=== PATIENT | male | born 1950 | race African-American/Black ===

== ENCOUNTER 2017-04-01 12:51 | Day surgery (SDC) | payer MEDICARE, OTHER ==
[~2017-04-01 12:51] MED LIST: CLON.2 PO; HYDR50TA5 PO; LISI40TA PO; METF-324 PO; NOVO7030P2 SQ; NOVONP2 SQ; PANCRELIPASE; [UNRECOGNIZED DRUG - OTHER]
[2017-04-01 13:09] VITALS: BP 144/75; PULSE 101; RESP 20; TEMP 98.3; O2SAT 94
[2017-04-01] MEDS ORDERED: LANTUS2P SQ (13:09)
[2017-04-01] MEDS ORDERED: ERTAPENEM 1,000 MG/NS 100 ML IV SCH ×2 (14:00)
[2017-04-01] MEDS ORDERED: ERTAPENEM 1,000 MG/NS 100 ML IV ONE ×2 (14:04)
[2017-04-01 14:10] VITALS: BP 159/74; PULSE 72; RESP 20; TEMP 98.2; O2SAT 92
[2017-04-01 15:25] VITALS: BP 148/80; PULSE 87; RESP 20; O2SAT 94
--- NOTE | 2017-04-01 15:32 | RADRPT ---
EXAM DATE/TIME: 04/01/2017 13:59 [facility] COMPARISON: No previous studies available for comparison. INDICATIONS : Patient with toe infection on left foot in need of PICC line placement. MEDICAL HISTORY : HIV, HTN, Diabetes, CKD, Anemia, Bilateral tinnitus SURGICAL HISTORY : Right leg fx repair ENCOUNTER: Initial ACUITY: 2 months PAIN SCORE: 0/10 FLUORO TIME: 1.1 minutes IMAGE SERIES: 1 ACCESS: Right basilic vein DEVICE(S): 1.) 4 [place] single lumen 38 cm Xcela Power PICC PROCEDURE : 1. Ultrasound guidance for venous catheterization. 2. Fluoroscopic guidance. 3. Ultrasound & fluoroscopic guided central venous Power PICC line placement. The risks, benefits and alternatives to the procedure were explained and verbal and written consent w as obtained. The site was prepped in sterile fashion. Full sterile technique was used, including ca p, mask, sterile gloves and gown and a large sterile sheet. Hand hygiene and 2% chlorhexidine prep w as utilized per protocol for cutaneous antisepsis with appropriate dry time for site. The skin and s ubcutaneous tissues were infiltrated with local anesthetic solution. Under direct ultrasound guidance, a suitable vein was accessed and a measuring guidewire was introduc ed and positioned in the central venous system. The ultrasound images depicting access guidance were saved and stored to PACS for permanent record. A Power Injectable PICC line was cut to prescribed length and introduced, positioned with tip at the cavoatrial junction level. The line was flushed and secured per protocol. CONCLUSION: 1. Uncomplicated central venous Power PICC line placement. 2. The PICC line can be used immediately. Freddy Carlin MD on April 01, 2017 at 15:30 Board Certified Radiologist. This report was verified electronically.
--- NOTE | 2017-04-01 15:33 | PD.RAD ---
Radiology Post PICC Prog Note Pre Procedure Diagnosis: (1) Toe infection Post Procedure Diagnosis: (1) Toe infection Procedure: Right PICC line placement Procedure Date: Apr 01, 2017 Supervising Radiologist Freddy Carlin Proceduralist/Assist: Clary Thompson, RT(R), Elizabeth Mir RT(R)() Device Side: Right [place]: 4 single lumen cm: 38 Catheter: Power PICC Plan of Activity Patient to Unit: ROPU Patient Condition: Good PICC line can be used immediately Freddy Carlin MD Apr 01, 2017 15:33
[2017-04-01] MEDS ORDERED: SODIUM CHLORIDE 0.9% FLUSH 10 ML FLUSH IVF PRN ×2 (15:45)
[2017-04-02] MEDS ORDERED: SODIUM CHLORIDE 0.9% FLUSH 10 ML FLUSH IVF SCH (09:00)
== END 2017-04-01 15:30 | disposition home or self-care (01) ==
LOC: HROP 12:51 → HRIP 12:55 → HROP 15:30
PROVIDERS: ATTEND Specialist
DX: L08.9 Local infection of the skin and subcutaneous tissue, unspecified (principal); E11.22 Type 2 diabetes mellitus with diabetic chronic kidney disease; I12.9 Hypertensive chronic kidney disease with stage 1 through stage 4 chronic kidney disease, or unspecified chronic kidney disease; N18.9 Chronic kidney disease, unspecified; D64.9 Anemia, unspecified
CPT/HCPCS: 36569; 76937; 77001; 96365; C1751; J1335; J1642

== ENCOUNTER 2017-08-05 17:44 | Inpatient (IN) | payer MEDICARE, OTHER ==
[~2017-08-05] VITALS: Ht 177.8 cm; Wt 90.4 kg
[~2017-08-05 17:44] MED LIST changes: +LANTUS2P SQ; -NOVONP2 SQ
[2017-08-05 17:46] VITALS: BP 145/70; PULSE 71; RESP 15; TEMP 98.6; O2SAT 96
--- NOTE | 2017-08-05 18:39 | PD ---
HPI Chief Complaint: Medical Clearance Time Seen by Provider: 18:28 Travel History International Travel<30 days: No Contact w/Intl Traveler<30days: No Traveled to known affect area: No History of Present Illness HPI 66-year-old male with history of HIV, diabetes, hypertension, presents with left second toe pain. He has had pain and issues with his left second toe for the past year. He reports that he has been on antibiotics intermittently for treatment of his left second toe infection. Reports that he was recently diagnosed with osteomyelitis of the toe. He reports that today he called his flue dust laborer office, Dr. Last, in regards to pain in his toe and he was referred here. He denies fevers, chills. His primary care physician is Dr. Carson. [facility] Past Medical History Cancer: Yes Diabetes: Yes Patient Takes Glucophage: Yes (METFORMIN) Diminished Hearing: No Hypertension: Yes Medical other: Yes (ANTI VIRAL MEDS) Past Surgical History Pacemaker: No Social History Alcohol Use: No Tobacco Use: No Substance Use: No Allergies-Medications (Allergen,Severity, Reaction): Coded Allergies: No Known Allergies (Verified , 08/05/17) Reported Meds & Prescriptions Reported Meds & Active Scripts Active Reported Hydrochlorothiazide 12.5 Mg Tab 12.5 Mg PO BID Clonidine (Clonidine HCl) 0.2 Mg Tab 0.2 Mg PO BID Lisinopril 40 Mg Tab 40 Mg PO BID Lamivudine 300 Mg Tab 300 Mg PO DAILY Edurant (Rilpivirine) 25 Mg Tab 25 Mg PO DAILY Tivicay (Dolutegravir Sodium) 50 Mg Tab 50 Mg PO DAILY Metformin (Metformin HCl) 1,000 Mg Tab 1,000 Mg PO BIDPC Thera M Plus (Multivitamins/Minerals Therapeutic) 1 Tab 1 Tab PO DAILY Clopidogrel (Clopidogrel Bisulfate) 75 Mg Tab 75 Mg PO DAILY Valacyclovir (Valacyclovir HCl) 1,000 Mg Tab 1,000 Mg PO DAILY Valacyclovir (Valacyclovir HCl) 1,000 Mg Tab 1,000 Mg PO BID Ferocon (Ferrous Fumarate W/ B12-Vit C-) 110 Mg Iron-75 Mg-15 Mcg-0.5 Mg Cap PO BID Calcium + D3 (Calcium Carbonate-Cholecalciferol) 600-200 Mg-Unit Tab 1 Tab PO BID Lantus Inj (Insulin Glargine) 1,000 Unit/10 Ml Vial 15 Units SQ HS Review of Systems Except as stated in HPI: all other systems reviewed are Neg Physical Exam Narrative GENERAL: Well-nourished male in no acute distress SKIN: Warm and dry. 1 cm circular dry ulceration of the dorsal aspect of the left second toe. There is some chronic-appearing darkened skin surrounding the wound which is not acutely necrotic-appearing or cellulitic appearing. Generalized tenderness to palpation of this toe. HEAD: Atraumatic. Normocephalic. EYES: Pupils equal and round. No scleral icterus. No injection or drainage. ENT: No nasal bleeding or discharge. Mucous membranes pink and moist. NECK: Trachea midline. No JVD. CARDIOVASCULAR: Regular rate and rhythm. No murmur appreciated. RESPIRATORY: No accessory muscle use. Clear to auscultation. Breath sounds equal bilaterally. GASTROINTESTINAL: Abdomen soft, non-tender, nondistended. Hepatic and splenic margins not palpable. MUSCULOSKELETAL: Skin as noted above. 2+ dorsalis pedis pulse bilaterally. NEUROLOGICAL: Awake and alert. No obvious cranial nerve deficits. Motor grossly within normal limits. Normal speech. PSYCHIATRIC: Appropriate mood and affect; insight and judgment normal. Data Data Last Documented VS Vital Signs Date Time Temp Pulse Resp B/P (MAP) Pulse Ox O2 Delivery O2 Flow Rate FiO2 08/05/17 17:46 98.6 71 15 145/70 (95) 96 Orders Orders Complete Blood Count With Diff (08/05/17 18:36) Comprehensive Metabolic Panel (08/05/17 18:36) Prothrombin Time / Inr (Pt) (08/05/17 18:36) Act Partial Throm Time (Ptt) (08/05/17 18:36) Lactic Acid Sepsis Protocol (08/05/17 18:36) Blood Culture (08/05/17 18:36) Iv Access Insert/Monitor (08/05/17 18:36) Foot, Complete ([id number]) (08/05/17 ) Vancomycin Inj (Vancomycin Inj) (08/05/17 19:45) Piperacil-Tazo 3.375 Gm Premix (Zosyn 3. (08/05/17 19:45) Admit Order (Ed Use Only) (08/05/17 19:43) Consult Podiatry (08/05/17 ) Labs Laboratory Tests Test 08/05/17 18:30 White Blood Count 7.0 TH/MM3 Red Blood Count 3.25 MIL/MM3 Hemoglobin 12.1 GM/DL Hematocrit 35.8 % Mean Corpuscular Volume 110.1 FL Mean Corpuscular Hemoglobin 37.1 PG Mean Corpuscular Hemoglobin Concent 33.7 % Red Cell Distribution Width 14.9 % Platelet Count 267 TH/MM3 Mean Platelet Volume 8.8 FL Neutrophils (%) (Auto) 43.9 % Lymphocytes (%) (Auto) 44.5 % Monocytes (%) (Auto) 9.4 % Eosinophils (%) (Auto) 1.6 % Basophils (%) (Auto) 0.6 % Neutrophils # (Auto) 3.1 TH/MM3 Lymphocytes # (Auto) 3.1 TH/MM3 Monocytes # (Auto) 0.7 TH/MM3 Eosinophils # (Auto) 0.1 TH/MM3 Basophils # (Auto) 0.0 TH/MM3 CBC Comment DIFF FINAL Differential Comment Prothrombin Time 10.6 SEC Prothromb Time International Ratio 1.0 RATIO Activated Partial Thromboplast Time 24.9 SEC Blood Urea Nitrogen 14 MG/DL Creatinine 1.77 MG/DL Random Glucose 71 MG/DL Total Protein 7.1 GM/DL Albumin 3.6 GM/DL Calcium Level 9.0 MG/DL Alkaline Phosphatase 78 U/L Aspartate Amino Transf (AST/SGOT) 19 U/L Alanine Aminotransferase (ALT/SGPT) 41 U/L Total Bilirubin 0.5 MG/DL Sodium Level 138 MEQ/L Potassium Level 3.9 MEQ/L Chloride Level 105 MEQ/L Carbon Dioxide Level 25.0 MEQ/L Anion Gap 8 MEQ/L Estimat Glomerular Filtration Rate 47 ML/MIN Lactic Acid Level 2.4 mmol/L [facility] Medical Decision Making Medical Screen Exam Complete: Yes Emergency Medical Condition: Yes Medical Record Reviewed: Yes Differential Diagnosis Acute osteomyelitis, chronic osteomyelitis, peripheral vascular disease, diabetic foot ulcer, cellulitis Narrative Course I discussed the case with on-call flue dust laborer Dr. Dooley who is partners with Dr. Last. She reports that if the patient is admitted she could likely amputate the toe in 2 days. The other option for this patient is that he can follow-up with primary care physician and attempt to expedite toe amputation as an outpatient however the patient is very much against this option and would like to be admitted. This seems reasonable given his outpatient diagnosed osteomyelitis. Discussed with Dr. Carson who is agreeable with admission. Diagnosis Primary Impression: Osteomyelitis of toe of left foot Admitting Information Admitting Physician Requests: Admit Tapan Mark Aug 05, 2017 18:39
[2017-08-05] MEDS ORDERED: METF1000 PO (19:20)
[2017-08-05] MEDS ORDERED: CLOP75TA PO (19:20)
[2017-08-05] MEDS ORDERED: RILP25 PO (19:20)
[2017-08-05] MEDS ORDERED: DOLU1TAB PO (19:20)
[2017-08-05] MEDS ORDERED: LAMI1TAB8 PO (19:20)
[2017-08-05] MEDS ORDERED: [UNRECOGNIZED DRUG - CODE] PO (19:20)
[2017-08-05] MEDS ORDERED: VALA1TAB PO ×2 (19:20)
[2017-08-05] MEDS ORDERED: THERM PO (19:20)
[2017-08-05] MEDS ORDERED: LISI40TA PO (19:20)
[2017-08-05] MEDS ORDERED: LANTUS2P SQ (19:20)
[2017-08-05] MEDS ORDERED: HYDR12.56 PO (19:20)
[2017-08-05] MEDS ORDERED: CLON0.2T PO (19:20)
[2017-08-05] MEDS ORDERED: CALC600T10 PO (19:20)
[2017-08-05 19:22] LABS: AUTOMATED NEUTROPHIL # 3.1 TH/MM3 (1.8-7.7); BASOPHIL % 0.6 % (0.0-2.0); EOSINOPHIL # 0.1 TH/MM3 (0-0.4); EOSINOPHIL % 1.6 % (0.0-4.0); HEMATOCRIT 35.8 % (39.0-51.0); HEMO FLAGS DIFF FINAL; LYMPH % 44.5 % (9.0-44.0); LYMPHOCYTE # 3.1 TH/MM3 (1.0-4.8); MEAN CELL VOLUME 110.1 FL (80.0-100.0); MEAN CORPUSCULAR HEMOGLOBIN 37.1 PG (27.0-34.0); MEAN CORPUSCULAR HGB CONC 33.7 % (32.0-36.0); MONO % 9.4 % (0.0-8.0); NEUT % 43.9 % (16.0-70.0); PLATELET COUNT 267 TH/MM3 (150-450); RED BLOOD COUNT 3.25 MIL/MM3 (4.50-5.90); RED CELL DISTRIBUTION WIDTH 14.9 % (11.6-17.2)
[2017-08-05 19:29] LABS: APTT (PATIENT) 24.9 SEC (24.3-30.1); PROTHROMBIN TIME - PATIENT 10.6 SEC (9.8-11.6)
[2017-08-05 19:34] LABS: ANION GAP 8 MEQ/L (5-15); AST (GOT) 19 U/L (15-37); BLOOD UREA NITROGEN 14 MG/DL (7-18); CHLORIDE 105 MEQ/L (98-107); GLOMERULAR FILTRATION RATE 47 ML/MIN (>89); POTASSIUM 3.9 MEQ/L (3.5-5.1); SODIUM (NA) 138 MEQ/L (136-145)
[2017-08-05 19:35] LABS: ALT (GPT) 41 U/L (12-78)
[2017-08-05 19:37] LABS: ALKALINE PHOSPHATASE 78 U/L (45-117); TOTAL BILIRUBIN ADULT 0.5 MG/DL (0.2-1.0)
[2017-08-05] MEDS ORDERED: VANCOMYCIN INJ 1,000 MG in SODIUM CHLOR 0.9% 250 ML INJ 250 ML IV ONE (19:45)
[2017-08-05] MEDS ORDERED: PIPERACIL-TAZO 3.375 GM PREMIX 50 ML IV ONE (19:45)
[2017-08-05] MEDS ORDERED: SODIUM CHLOR 0.9% 1000 ML INJ 1,000 ML IV SCH (20:18)
--- NOTE | 2017-08-05 20:35 | RADRPT ---
EXAM DATE/TIME: 08/05/2017 19:53 [facility] COMPARISON: No previous studies available for comparison. INDICATIONS : Pain and swelling. MEDICAL HISTORY : Diabetes mellitus type II. SURGICAL HISTORY : None. ENCOUNTER: Initial ACUITY: 4 - 6 days PAIN SCORE: 5/10 LOCATION: Left foot, second digit. FINDINGS: There is a hallux valgus deformity. Hammertoe deformities are present. There is an ulceration on the dorsum of the foot at the proximal interphalangeal joint of the second toe with subluxation and questionable mild bony erosive change at the proximal phalanx. CONCLUSION: 1. Soft tissue swelling and ulceration at the second toe with questionable ulceration of the proximal phalanx. Differential diagnosis includes early osteomyelitis. No subluxation at the proximal interph alangeal joint of the second toe as well. Also hallux valgus deformity and chronic degenerative rosas es left foot. Bryce Hinojosa MD on August 05, 2017 at 20:31 Board Certified Radiologist. This report was verified electronically.
[2017-08-05 21:13] LABS: LACTIC ACID GHOST NOT REPORTABLE
[2017-08-05] MEDS ORDERED: NALOXONE HCL 0.4 MG/ML AMP IV PUSH PRN (21:45)
[2017-08-05] MEDS ORDERED: SODIUM CHLORIDE 0.9% FLUSH 10 ML FLUSH IV FLUSH PRN (21:45)
[2017-08-05] MEDS ORDERED: MAGNESIUM HYDROXIDE SUSP 30 ML CUP PO PRN (21:45)
[2017-08-05] MEDS ORDERED: SENNOSIDES 8.6 MG TAB PO PRN (21:45)
[2017-08-05] MEDS ORDERED: ONDANSETRON HCL 4 MG/2 ML VIAL IVP PRN (21:45)
[2017-08-05] MEDS ORDERED: LACTULOSE SYRUP 20 GM/30 ML CUP PO PRN (21:45)
[2017-08-05] MEDS ORDERED: BISACODYL 10 MG SUPP RECTAL PRN (21:45)
--- NOTE | 2017-08-05 21:55 | HHI.HP ---
HPI Service [facility] Hospitalists Primary Care Physician Rambo Bustos MD Admission Diagnosis left second toe osteomyelitis Chief Complaint: left second toe osteomlelitis Travel History International Travel<30 Days: No Contact w/Intl Traveler <30 Da: No Traveled to Known Affected Are: No History of Present Illness 66 y/o male with history of osteomyelitis left second toe treated as outpatiwent with 21 days of IV antibiotics and had follow up with ID and podiatry. Patient has had increasing pain to toe and was told by podiatry the soonist outpatient procedure would be in august and was instructed to come to er and can possibly be done this weekend and patient came to er ,toe has circular dry ulcer left second toe with skin discoloration pain on movement. Patient with PMH of HIV on prophylaxis medications,also diabetes on insulin . Patient will be admitted with podiatry evaluation. Did receive vancomycin and zosyn in er. Review of Systems Integumentary: COMPLAINS OF: Abnormal pigmentation Past Family Social History Past Medical History diabetes,hypertension,osteo foot HIV karposi in past Past Surgical History none Reported Medications Hydrochlorothiazide 12.5 Mg Tab 12.5 Mg PO BID Clonidine (Clonidine HCl) 0.2 Mg Tab 0.2 Mg PO BID Lisinopril 40 Mg Tab 40 Mg PO BID Lamivudine 300 Mg Tab 300 Mg PO DAILY Edurant (Rilpivirine) 25 Mg Tab 25 Mg PO DAILY Tivicay (Dolutegravir Sodium) 50 Mg Tab 50 Mg PO DAILY Metformin (Metformin HCl) 1,000 Mg Tab 1,000 Mg PO BIDPC Thera M Plus (Multivitamins/Minerals Therapeutic) 1 Tab 1 Tab PO DAILY Clopidogrel (Clopidogrel Bisulfate) 75 Mg Tab 75 Mg PO DAILY Valacyclovir (Valacyclovir HCl) 1,000 Mg Tab 1,000 Mg PO DAILY Valacyclovir (Valacyclovir HCl) 1,000 Mg Tab 1,000 Mg PO BID Ferocon (Ferrous Fumarate W/ B12-Vit C-) 110 Mg Iron-75 Mg-15 Mcg-0.5 Mg Cap PO BID Calcium + D3 (Calcium Carbonate-Cholecalciferol) 600-200 Mg-Unit Tab 1 Tab PO BID Lantus Inj (Insulin Glargine) 1,000 Unit/10 Ml Vial 15 Units SQ HS Allergies: Coded Allergies: No Known Allergies (Verified , 10/6/17) Social History NS,ND Physical Exam Vital Signs Vital Signs Date Time Temp Pulse Resp B/P (MAP) Pulse Ox O2 Delivery O2 Flow Rate FiO2 08/05/17 17:46 98.6 71 15 145/70 (95) 96 Physical Exam GENERAL: This is a well-nourished, well-developed patient, in no apparent distress. SKIN: No rashes, ecchymoses or lesions. Cool and dry. HEAD: Atraumatic. Normocephalic. No temporal or scalp tenderness. EYES: Pupils equal round and reactive. Extraocular motions intact. No scleral icterus. No injection or drainage. ENT: Nose without bleeding, purulent drainage or septal hematoma. Throat without erythema, tonsillar hypertrophy or exudate. Uvula midline. Airway patent. NECK: Trachea midline. No JVD or lymphadenopathy. Supple, nontender, no meningeal signs. CARDIOVASCULAR: Regular rate and rhythm without murmurs, gallops, or rubs. RESPIRATORY: Clear to auscultation. Breath sounds equal bilaterally. No wheezes , rales, or rhonchi. GASTROINTESTINAL: Abdomen soft, non-tender, nondistended. No hepato-splenomegaly , or palpable masses. No guarding. MUSCULOSKELETAL: Extremities without clubbing, cyanosis, or edema. No joint tenderness, effusion, or edema noted. No calf tenderness. Negative Homans sign bilaterally.Left second toe 1cm circular dry ulceration dorsal aspect left second toe darkened skin surrounding wound with tenderness to palpation NEUROLOGICAL: Awake and alert. Cranial nerves II through XII intact. Motor and sensory grossly within normal limits. Five out of 5 muscle strength in all muscle groups. Normal speech. Laboratory Laboratory Tests Test 08/05/17 18:30 White Blood Count 7.0 Red Blood Count 3.25 Hemoglobin 12.1 Hematocrit 35.8 Mean Corpuscular Volume 110.1 Mean Corpuscular Hemoglobin 37.1 Mean Corpuscular Hemoglobin Concent 33.7 Red Cell Distribution Width 14.9 Platelet Count 267 Mean Platelet Volume 8.8 Neutrophils (%) (Auto) 43.9 Lymphocytes (%) (Auto) 44.5 Monocytes (%) (Auto) 9.4 Eosinophils (%) (Auto) 1.6 Basophils (%) (Auto) 0.6 Neutrophils # (Auto) 3.1 Lymphocytes # (Auto) 3.1 Monocytes # (Auto) 0.7 Eosinophils # (Auto) 0.1 Basophils # (Auto) 0.0 CBC Comment DIFF FINAL Differential Comment Prothrombin Time 10.6 Prothromb Time International Ratio 1.0 Activated Partial Thromboplast Time 24.9 Blood Urea Nitrogen 14 Creatinine 1.77 Random Glucose 71 Total Protein 7.1 Albumin 3.6 Calcium Level 9.0 Alkaline Phosphatase 78 Aspartate Amino Transf (AST/SGOT) 19 Alanine Aminotransferase (ALT/SGPT) 41 Total Bilirubin 0.5 Sodium Level 138 Potassium Level 3.9 Chloride Level 105 Carbon Dioxide Level 25.0 Anion Gap 8 Estimat Glomerular Filtration Rate 47 Lactic Acid Level 2.4 Date/Time Source Procedure Growth Status 08/05/17 18:45 Blood Peripheral Aerobic Blood Culture Pending Received 08/05/17 18:45 Blood Peripheral Anaerobic Blood Culture Pending Received Result Diagram: 08/05/17 1830 08/05/17 1830 Imaging Last 24 hours Impressions Foot X-Ray 08/05/17 0000 Signed Impressions: Service Date/Time: Saturday, August 05, 2017 19:53 - CONCLUSION: 1. Soft tissue swelling and ulceration at the second toe with questionable ulceration of the proximal phalanx. Differential diagnosis includes early osteomyelitis. No subluxation at the proximal interphalangeal joint of the second toe as well. Also hallux valgus deformity and chronic degenerative changes left foot. Bryce Hinojosa MD Course in er started on vancomycin and zoyzn will continue for now Caprini VTE Risk Assessment Caprini VTE Risk Assessment: Mod/High Risk (score >= 2) Caprini Risk Assessment Model Point Value = 1 Point Value = 2 Point Value = 3 Point Value = 5 Age 41-60 Minor surgery BMI > 25 kg/m2 Swollen legs Varicose veins or History of unexplained or recurrent spontaneous Oral contraceptives or hormone replacement Sepsis (< 1 month) Serious lung disease, including pneumonia (< 1 month) Abnormal pulmonary function Acute myocardial infarction Congestive heart failure (< 1 month) History of inflammatory bowel disease Medical patient at bed rest Age 61-74 Arthroscopic surgery Major open surgery (> 45 min) Laparoscopic surgery (> 45 min) Malignancy Confined to bed (> 72 hours) Immobilizing plaster cast Central venous access Age >= 75 History of VTE Family history of VTE Factor V Leiden Prothrombin [id number] Lupus anticoagulant Anticardiolipin antibodies Elevated serum homocysteine Heparin-induced thrombocytopenia Other congenital or acquired thrombophilia Stroke (< 1 month) Elective arthroplasty Hip, pelvis, or leg fracture Acute spinal cord injury (< 1 month) Prophylaxis Regimen Total Risk Factor Score Risk Level Prophylaxis Regimen 0-1 Low Early ambulation 2 Moderate Order ONE of the following: *Sequential Compression Device (SCD) *Heparin 5000 units SQ BID 3-4 Higher Order ONE of the following medications: *Heparin 5000 units SQ TID *Enoxaparin/Lovenox 40 mg SQ daily (WT < 150 kg, CrCl > 30 mL/min) *Enoxaparin/Lovenox 30 mg SQ daily (WT < 150 kg, CrCl > 10-29 mL/min) *Enoxaparin/Lovenox 30 mg SQ BID (WT < 150 kg, CrCl > 30 mL/min) AND/OR *Sequential Compression Device (SCD) 5 or more Highest Order ONE of the following medications: *Heparin 5000 units SQ TID (Preferred with Epidurals) *Enoxaparin/Lovenox 40 mg SQ daily (WT < 150 kg, CrCl > 30 mL/min) *Enoxaparin/Lovenox 30 mg SQ daily (WT < 150 kg, CrCl > 10-29 mL/min) *Enoxaparin/Lovenox 30 mg SQ BID (WT < 150 kg, CrCl > 30 mL/min) AND *Sequential Compression Device (SCD) Assessment and Plan Problem List: (1) Osteomyelitis of toe of left foot ICD Codes: M86.9 - Osteomyelitis, unspecified Status: Acute Plan: vancomycin zoysn Podiatry evaluation has been followed by Dr Last according to patient (2) Toe infection ICD Codes: L08.9 - Local infection of the skin and subcutaneous tissue, unspecified Status: Acute Plan: as above Assessment and Plan further plan as per podiatry will continue patient medications as per med rec hold plavix in case surgery planned Code Status full Discussed Condition With patient Physician Certification 2 Midnight Certification Type: Admission for Inpatient Services Order for Inpatient Services The services are ordered in accordance with Medicare regulations or non- Medicare payer requirements, as applicable. In the case of services not specified as inpatient-only, they are appropriately provided as inpatient services in accordance with the 2-midnight benchmark. Estimated LOS (days): 3 3 days is the estimated time the patient will need to remain in the hospital, assuming treatment plan goals are met and no additional complications. Post-Hospital Plan: Not yet determined Rambo Bustos MD Aug 05, 2017 21:55
[2017-08-05] MEDS: INSULIN DETEMIR 100 UNITS/ML VIAL SQ SCH (22:00)
[2017-08-05] MEDS ORDERED: Vancomycin Consult Pharmacy 1 EA OTHER SCH (22:00)
[2017-08-05] MEDS ORDERED: VANCOMYCIN 1,000 MG/NS 250 ML IV ONE ×2 (22:30)
[2017-08-05] MEDS: CALCIUM/VITAMIN D 250 MG/125 U TAB PO SCH (23:31)
[2017-08-05] MEDS: LISINOPRIL 20 MG TAB PO SCH (23:31)
[2017-08-06] VITALS: BP 142/65; PULSE 56; RESP 16; TEMP 97.9; O2SAT 98
[2017-08-06] MEDS: PIPERACIL-TAZO 3.375 GM PREMIX 50 ML IV SCH ×4 (00:11→21:58)
[2017-08-06] MEDS: MORPHINE SULFATE 4 MG/ML INJ IV PUSH PRN ×3 (00:37→18:02)
[2017-08-06 04:00] VITALS: BP 138/69; PULSE 60; RESP 20; TEMP 97.6; O2SAT 100
[2017-08-06 08:00] VITALS: BP 156/70; PULSE 63; RESP 20; TEMP 98.5; O2SAT 98
[2017-08-06] MEDS: DOCUSATE SODIUM 50 MG/SENNA 8.6 MG TAB PO SCH ×2 (09:00→20:33)
[2017-08-06] MEDS ORDERED: metFORMIN HCL 500 MG TAB PO SCH (09:00)
[2017-08-06] MEDS: MULTIVITAMINS/MINERALS THERAPEUTIC TAB PO SCH (09:17)
[2017-08-06] MEDS: SODIUM CHLORIDE 0.9% FLUSH 10 ML FLUSH IV FLUSH SCH ×2 (09:17→20:33)
[2017-08-06] MEDS: HYDROCHLOROTHIAZIDE 12.5 MG CAP PO SCH ×2 (09:17→20:33)
[2017-08-06] MEDS: cloNIDine HCL 0.2 MG TAB PO SCH ×2 (09:17→20:34)
[2017-08-06] MEDS: CALCIUM/VITAMIN D 250 MG/125 U TAB PO SCH ×2 (09:17→20:33)
[2017-08-06] MEDS: LISINOPRIL 20 MG TAB PO SCH ×2 (09:18→20:34)
[2017-08-06] MEDS: INSULIN DETEMIR 100 UNITS/ML VIAL SQ SCH ×2 (09:20→21:55)
[2017-08-06] MEDS: INSULIN NovoLIN REGULAR SUPPLEMENTAL SCALE SQ SCH ×4 (09:23→21:58)
[2017-08-06] MEDS: DOLUTEGRAVIR SODIUM 50 MG TAB PO SCH (10:27)
[2017-08-06] MEDS: valACYclovir HCL 500 MG TAB PO SCH ×3 (10:27→20:33)
--- NOTE | 2017-08-06 10:34 | HHI.PR ---
Subjective Remarks doing ok wants regular diet Objective Vitals heart rg lung cta abd s/nt ext left 2nd toe swelling.dorsal ulceration Vital Signs Date Time Temp Pulse Resp B/P (MAP) Pulse Ox O2 Delivery O2 Flow Rate FiO2 08/06/17 08:00 98.5 63 20 156/70 (98) 98 08/06/17 04:00 97.6 60 20 138/69 (92) 100 08/06/17 00:00 97.9 56 16 142/65 (90) 98 08/05/17 22:14 08/05/17 17:46 98.6 71 15 145/70 (95) 96 Result Diagram: 08/05/17 1830 08/05/17 1830 Imaging Last 24 hours Impressions Foot X-Ray 08/05/17 0000 Signed Impressions: Service Date/Time: Saturday, August 05, 2017 19:53 - CONCLUSION: 1. Soft tissue swelling and ulceration at the second toe with questionable ulceration of the proximal phalanx. Differential diagnosis includes early osteomyelitis. No subluxation at the proximal interphalangeal joint of the second toe as well. Also hallux valgus deformity and chronic degenerative changes left foot. Bryce Hinojosa MD A/P Problem List: (1) Osteomyelitis of toe of left foot ICD Codes: M86.9 - Osteomyelitis, unspecified Status: Acute Plan: 1. left 2nd toe osteomyelitis/ulceration. s/p 6 weeks iv invanz and then po abx 2. dm 2. 3. hiv 4 . htn podiatry to perform amputation in AM gentle ivf check outpt cr/gfr. pt metformin and Invokana recently stopped pt was placed on levemir and ssi last night he reports 15u 70/30 am and 15u lantus at night for home regimen. d/c when ok with podiatry. hiv meds resumed. (2) Toe infection ICD Codes: L08.9 - Local infection of the skin and subcutaneous tissue, unspecified Status: Acute Plan: as above (3) HIV (human immunodeficiency virus infection) ICD Codes: B20 - Human immunodeficiency virus [HIV] disease Status: Chronic (4) Diabetes ICD Codes: E11.9 - Type 2 diabetes mellitus without complications Status: Chronic (5) HTN (hypertension) ICD Codes: I10 - Essential (primary) hypertension Status: Chronic Claude Gordon MD Aug 06, 2017 10:34
[2017-08-06 12:00] VITALS: BP 149/68; PULSE 60; RESP 19; TEMP 97.8; O2SAT 98
[2017-08-06 16:00] VITALS: BP 148/68; PULSE 62; RESP 19; TEMP 97.7; O2SAT 97
[2017-08-06] MEDS: RILPIVIRINE 25 MG TAB PO SCH (18:01)
--- NOTE | 2017-08-06 18:02 | PD.CONS ---
History of Present Illness Service Podiatry Consult Requested By Reason for Consult L 2nd toe osteo Primary Care Physician Rambo Bustos MD Diagnoses: History of Present Illness Long history of dorsal wound L 2nd toe. Patient of Dr Last. Recent MRI positive for OM Past Family Social History Allergies: Coded Allergies: No Known Allergies (Verified , 08/05/17) Past Medical History diabetes,hypertension,osteo foot HIV karposi in past Active Ordered Medications Current Medications Medications (Trade) Dose Ordered Sig/Abby Route Start Time Stop Time Status Last Admin (Catapres) 0.2 mg BID PO 08/06/17 09:00 08/07/17 09:02 (Microzide) 12.5 mg BID PO 08/06/17 09:00 08/07/17 09:01 (Levemir Inj) 15 units BID SQ 08/05/17 22:00 08/06/17 21:55 (Epivir) 300 mg DAILY PO 08/06/17 09:00 08/07/17 09:02 (Theragran M Tab) 1 tab DAILY PO 08/06/17 09:00 08/07/17 09:01 (Edurant) 25 mg DAILY@1800 PO 08/06/17 18:00 08/06/17 18:01 (Valtrex) 1,000 mg BID PO 08/06/17 09:00 08/07/17 09:02 (Valtrex) 1,000 mg DAILY@1400 PO 08/06/17 14:00 08/06/17 14:25 (Oscal-D 250-125) 250 mg BID PO 08/05/17 22:00 08/07/17 09:01 (Prinivil) 40 mg BID PO 08/05/17 21:54 08/07/17 09:02 (NS Flush) 2 ml UNSCH PRN IV FLUSH 08/05/17 21:45 (NS Flush) 2 ml BID IV FLUSH 08/06/17 09:00 08/06/17 20:33 (Zofran Inj) 4 mg Q6H PRN IVP 08/05/17 21:45 (Morphine Inj) 2 mg Q8H PRN IV PUSH 08/05/17 21:45 08/07/17 02:05 (Narcan Inj) 0.4 mg UNSCH PRN IV PUSH 08/05/17 21:45 (Ashley-Colace) 1 tab BID PO 08/06/17 09:00 08/07/17 09:01 (Milk Of Magnesia Liq) 30 ml Q12H PRN PO 08/05/17 21:45 (Senokot) 17.2 mg Q12H PRN PO 08/05/17 21:45 (Dulcolax Supp) 10 mg DAILY PRN RECTAL 08/05/17 21:45 (Lactulose Liq) 30 ml DAILY PRN PO 08/05/17 21:45 (NovoLIN R SUPPLEMENTAL SCALE) 1 ACHS SLIDING SCALE SQ 08/06/17 08:00 08/06/17 21:58 Piperacillin Sod/ Tazobactam Sod 50 ml @ 100 mls/hr Q8H IV 08/05/17 22:00 08/07/17 05:46 Pharmacy Profile Note 0 ml @ 0 mls/hr UNSCH OTHER 08/05/17 22:00 Sodium Chloride 1,000 ml @ 84 mls/hr [id number] IV 08/06/17 23:00 08/07/17 09:02 Social History denies Physical Exam Vital Signs Vital Signs Date Time Temp Pulse Resp B/P (MAP) Pulse Ox O2 Delivery O2 Flow Rate FiO2 08/06/17 16:00 97.7 62 19 148/68 (94) 97 08/06/17 16:00 Room Air 08/06/17 12:00 97.8 60 19 149/68 (95) 98 08/06/17 12:00 Room Air 08/06/17 08:30 Room Air 08/06/17 08:00 98.5 63 20 156/70 (98) 98 08/06/17 04:00 97.6 60 20 138/69 (92) 100 08/06/17 00:00 97.9 56 16 142/65 (90) 98 08/05/17 22:14 Physical Exam chronic dorsal L 2nd toe wound with sausaging of digit noted. No erythema. No purulent drainage at this time. Toe appears dorsally dislocated at MTP joint. Laboratory Laboratory Tests Test 08/05/17 18:30 08/05/17 23:00 White Blood Count 7.0 Red Blood Count 3.25 Hemoglobin 12.1 Hematocrit 35.8 Mean Corpuscular Volume 110.1 Mean Corpuscular Hemoglobin 37.1 Mean Corpuscular Hemoglobin Concent 33.7 Red Cell Distribution Width 14.9 Platelet Count 267 Mean Platelet Volume 8.8 Neutrophils (%) (Auto) 43.9 Lymphocytes (%) (Auto) 44.5 Monocytes (%) (Auto) 9.4 Eosinophils (%) (Auto) 1.6 Basophils (%) (Auto) 0.6 Neutrophils # (Auto) 3.1 Lymphocytes # (Auto) 3.1 Monocytes # (Auto) 0.7 Eosinophils # (Auto) 0.1 Basophils # (Auto) 0.0 CBC Comment DIFF FINAL Differential Comment Prothrombin Time 10.6 Prothromb Time International Ratio 1.0 Activated Partial Thromboplast Time 24.9 Blood Urea Nitrogen 14 Creatinine 1.77 Random Glucose 71 Total Protein 7.1 Albumin 3.6 Calcium Level 9.0 Alkaline Phosphatase 78 Aspartate Amino Transf (AST/SGOT) 19 Alanine Aminotransferase (ALT/SGPT) 41 Total Bilirubin 0.5 Sodium Level 138 Potassium Level 3.9 Chloride Level 105 Carbon Dioxide Level 25.0 Anion Gap 8 Estimat Glomerular Filtration Rate 47 Lactic Acid Level 2.4 2.2 Date/Time Source Procedure Growth Status 08/05/17 18:45 Blood Peripheral Aerobic Blood Culture - Preliminary NO GROWTH IN 1 DAY Resulted 08/05/17 18:45 Blood Peripheral Anaerobic Blood Culture - Preliminary NO GROWTH IN 1 DAY Resulted Result Diagram: 08/05/17 1830 08/05/17 1830 Imaging Last 72 hours Impressions Foot X-Ray 08/05/17 0000 Signed Impressions: Service Date/Time: Saturday, August 05, 2017 19:53 - CONCLUSION: 1. Soft tissue swelling and ulceration at the second toe with questionable ulceration of the proximal phalanx. Differential diagnosis includes early osteomyelitis. No subluxation at the proximal interphalangeal joint of the second toe as well. Also hallux valgus deformity and chronic degenerative changes left foot. Bryce Hinojosa MD Assessment and Plan Assessment and Plan Osteomyelitis L 2nd toe NPO after midnight Amputation L 2nd toe tomorrow Delmy Dooley DPM Aug 06, 2017 18:02
[2017-08-06 20:00] VITALS: BP 138/68; PULSE 87; RESP 20; TEMP 98.2; O2SAT 97
[2017-08-06] MEDS: SODIUM CHLOR 0.9% 1000 ML INJ 1,000 ML IV SCH (22:00)
[2017-08-07] VITALS: BP 119/59; PULSE 60; RESP 20; TEMP 97.3; O2SAT 97
[2017-08-07] MEDS: MORPHINE SULFATE 4 MG/ML INJ IV PUSH PRN ×3 (02:05→20:51)
[2017-08-07 04:00] VITALS: BP 158/74; PULSE 50; RESP 18; TEMP 97.9; O2SAT 96
[2017-08-07] MEDS: PIPERACIL-TAZO 3.375 GM PREMIX 50 ML IV SCH ×3 (05:46→21:40)
[2017-08-07 08:00] VITALS: BP 174/83; PULSE 58; RESP 18; TEMP 98.1; O2SAT 97
[2017-08-07] MEDS: INSULIN NovoLIN REGULAR SUPPLEMENTAL SCALE SQ SCH ×4 (08:00→20:53)
[2017-08-07] MEDS: INSULIN DETEMIR 100 UNITS/ML VIAL SQ SCH ×2 (08:54→20:50)
[2017-08-07] MEDS: SODIUM CHLORIDE 0.9% FLUSH 10 ML FLUSH IV FLUSH SCH ×2 (09:00→20:51)
[2017-08-07] MEDS: DOLUTEGRAVIR SODIUM 50 MG TAB PO SCH (09:01)
[2017-08-07] MEDS: CALCIUM/VITAMIN D 250 MG/125 U TAB PO SCH ×2 (09:01→20:50)
[2017-08-07] MEDS: DOCUSATE SODIUM 50 MG/SENNA 8.6 MG TAB PO SCH ×2 (09:01→20:50)
[2017-08-07] MEDS: HYDROCHLOROTHIAZIDE 12.5 MG CAP PO SCH ×2 (09:01→20:50)
[2017-08-07] MEDS: MULTIVITAMINS/MINERALS THERAPEUTIC TAB PO SCH (09:01)
[2017-08-07] MEDS: LISINOPRIL 20 MG TAB PO SCH ×2 (09:02→20:50)
[2017-08-07] MEDS: valACYclovir HCL 500 MG TAB PO SCH ×3 (09:02→21:40)
[2017-08-07] MEDS: SODIUM CHLOR 0.9% 1000 ML INJ 1,000 ML IV SCH (09:02)
[2017-08-07] MEDS: cloNIDine HCL 0.2 MG TAB PO SCH ×2 (09:02→20:50)
[2017-08-07 10:13] LABS: BICARBONATE 28.4 MEQ/L (21.0-32.0); POTASSIUM 3.7 MEQ/L (3.5-5.1)
[2017-08-07] MEDS ORDERED: LIDOCAINE HCL 2% 50 ML VIAL ONE (11:33)
[2017-08-07 12:00] VITALS: BP 160/70; PULSE 52; RESP 18; TEMP 98.1; O2SAT 96
[2017-08-07] MEDS ORDERED: LIDOCAINE HCL 1% PF 5 ML AMPULE OTHER ONE (12:00)
[2017-08-07] MEDS ORDERED: PROPOFOL 200 MG/20 ML AMP IV ONE (12:00)
[2017-08-07] MEDS ORDERED: MIDAZOLAM HCL 2 MG/2 ML VIAL IV ONE (12:00)
--- NOTE | 2017-08-07 12:19 | HHI.PR ---
Subjective Remarks getting ready for surgery. no complaints Objective Vitals heart reg lung cta abd /snt ext left seconde toe swollen/ulcerated dorsally with no drainage Vital Signs Date Time Temp Pulse Resp B/P (MAP) Pulse Ox O2 Delivery O2 Flow Rate FiO2 08/07/17 08:00 98.1 58 18 174/83 (113) 97 08/07/17 08:00 Room Air 08/07/17 04:00 Room Air 08/07/17 04:00 97.9 50 18 158/74 (102) 96 08/07/17 00:00 Room Air 08/07/17 00:00 97.3 60 20 119/59 (79) 97 08/06/17 20:00 98.2 87 20 138/68 (91) 97 08/06/17 20:00 Room Air 08/06/17 16:00 97.7 62 19 148/68 (94) 97 08/06/17 16:00 Room Air 08/07/17 08/07/17 08/08/17 15:00 23:00 07:00 Intake Total 1000 ml Balance 1000 ml IV Total 1000 ml Result Diagram: 08/05/17 1830 08/07/17 0839 Imaging Last 24 hours Impressions Foot X-Ray 08/05/17 0000 Signed Impressions: Service Date/Time: Saturday, August 05, 2017 19:53 - CONCLUSION: 1. Soft tissue swelling and ulceration at the second toe with questionable ulceration of the proximal phalanx. Differential diagnosis includes early osteomyelitis. No subluxation at the proximal interphalangeal joint of the second toe as well. Also hallux valgus deformity and chronic degenerative changes left foot. Bryce Hinojosa MD A/P Problem List: (1) Osteomyelitis of toe of left foot ICD Codes: M86.9 - Osteomyelitis, unspecified Status: Acute Plan: 1. left 2nd toe osteomyelitis/ulceration. s/p 6 weeks iv invanz and then po abx 2. dm 2. 3. hiv 4 . htn podiatry to perform amputation today gentle ivf and stop after surgery check outpt cr/gfr. pt metformin and Invokana recently stopped pt was placed on levemir and ssi he reports 15u 70/30 am and 15u lantus at night for home regimen. d/c when ok with podiatry. hiv meds resumed. (2) Toe infection ICD Codes: L08.9 - Local infection of the skin and subcutaneous tissue, unspecified Status: Acute Plan: as above (3) HIV (human immunodeficiency virus infection) ICD Codes: B20 - Human immunodeficiency virus [HIV] disease Status: Chronic (4) Diabetes ICD Codes: E11.9 - Type 2 diabetes mellitus without complications Status: Chronic (5) HTN (hypertension) ICD Codes: I10 - Essential (primary) hypertension Status: Chronic Claude Gordon MD Aug 07, 2017 12:19
[2017-08-07] MEDS ORDERED: DEXT 5%-NACL 0.9% 500 ML INJ 500 ML IV ONE (12:30)
--- NOTE | 2017-08-07 12:56 | EKG ---
Date Performed: 08/07/2017 Time Performed: 10:14:12 PTAGE: 66 years EKG: SINUS BRADYCARDIA BORDERLINE ECG PREVIOUS TRACING : 10/26/2013 11.25 DOCTOR: Alan Marquez Interpretating Date/Time 08/07/2017 12:55:04
--- NOTE | 2017-08-07 13:14 | HHI.PR ---
Immediate Post Op Note Procedure Date: Aug 07, 2017 Pre Op Diagnosis: Osteomyelitis L 2nd toe Post Op Diagnosis: Same Surgeon: Delmy Dooley DPM [employer] Supervisor(s): Staff Procedure: Amputation L 2nd toe Findings: Consistent with diagnosis. L 2nd toe with edema and dorsal ulceration. Toe disarticulated at MTP joint. 2nd metatarsal head cartilage cap white, shiny, healthy in appearance with no purulence or necrotic tissue present. Irrigation and primary closure with 2-0 and 3-0 nylon, followed by xeroform, 4x4, cling, ney L foot. WBAT L foot in surgical shoe. Ok to d/c home on 2 weeks oral broad spectrum antibiotics. Additional Information: n/a Complications: none Specimen(s) removed: 1. culture L foot 2. L 2nd toe Estimated blood loss: minimal Anesthesia: General, Local (10mL 0.5% marcaine plain) Drains: None IVF Tourniquet time (min at mmHg) L ankle @ 250mmHg x 44 min Patient to: PACU Patient Condition: Good Date/Time of Procedure: SEE SURGICAL CARE RECORD Delmy Dooley DPM Aug 07, 2017 13:14
[2017-08-07] MEDS: VANCOMYCIN 1,500 MG/NS 500 ML IV SCH ×2 (13:15)
[2017-08-07] MEDS ORDERED: BUPIVACAINE HCL PF 0.5% 10 ML VIAL INFIL ONE (14:15)
[2017-08-07] MEDS ORDERED: DO NOT ADM ANY ANTICOAGULANT DRUGS PRN (14:45)
--- NOTE | 2017-08-07 14:56 | RADRPT ---
EXAM DATE/TIME: 08/07/2017 14:24 [facility] COMPARISON: FOOT LEFT COMPLETE ([id number]), August 05, 2017, 19:53. INDICATIONS : Post amputation left foot 2nd toe, osteomyelitits MEDICAL HISTORY : Diabetes mellitus type II. SURGICAL HISTORY : None. ENCOUNTER: Subsequent ACUITY: 4 - 6 days PAIN SCORE: 0/10 LOCATION: Left Foot FINDINGS: There is amputation of the right second digit. There is a small amount of gas within the subcutaneous tissues presumably this is postoperative. There are arthritic changes within the metatarsophalangeal joint of the first digit. The osseous stru ctures are otherwise intact. CONCLUSION: 1. Post surgical changes. 2. Arthritic changes in the metatarsophalangeal joint of the first digit. 3. No acute abnormality. Piero Barrera MD on August 07, 2017 at 14:54 Board Certified Radiologist. This report was verified electronically.
[2017-08-07 16:00] VITALS: BP 164/76; PULSE 54; RESP 18; TEMP 97.4; O2SAT 98
[2017-08-07] MEDS: RILPIVIRINE 25 MG TAB PO SCH (17:51)
[2017-08-07 20:00] VITALS: BP 148/75; PULSE 58; RESP 20; TEMP 97.3; O2SAT 96
[2017-08-08] VITALS: BP 173/73; PULSE 56; RESP 20; TEMP 98.2; O2SAT 95
[2017-08-08 04:00] VITALS: BP 152/71; PULSE 57; RESP 18; TEMP 98.1; O2SAT 94
[2017-08-08] MEDS: MORPHINE SULFATE 4 MG/ML INJ IV PUSH PRN ×2 (05:02→21:09)
[2017-08-08] MEDS: PIPERACIL-TAZO 3.375 GM PREMIX 50 ML IV SCH ×3 (05:02→21:07)
[2017-08-08 08:00] VITALS: BP 133/74; PULSE 75; RESP 18; TEMP 99; O2SAT 96
[2017-08-08] MEDS: INSULIN NovoLIN REGULAR SUPPLEMENTAL SCALE SQ SCH ×4 (08:00→22:30)
[2017-08-08] MEDS: INSULIN DETEMIR 100 UNITS/ML VIAL SQ SCH ×2 (09:00→22:29)
[2017-08-08 09:28] LABS: BICARBONATE 26.1 MEQ/L (21.0-32.0); POTASSIUM 3.6 MEQ/L (3.5-5.1)
[2017-08-08] MEDS: VANCOMYCIN 1,500 MG/NS 500 ML IV SCH ×2 (09:37)
[2017-08-08] MEDS: DOLUTEGRAVIR SODIUM 50 MG TAB PO SCH (09:38)
[2017-08-08] MEDS: HYDROCHLOROTHIAZIDE 12.5 MG CAP PO SCH ×2 (09:38→21:08)
[2017-08-08] MEDS: SODIUM CHLORIDE 0.9% FLUSH 10 ML FLUSH IV FLUSH SCH ×2 (09:38→21:09)
[2017-08-08] MEDS: LISINOPRIL 20 MG TAB PO SCH ×2 (09:39→21:08)
[2017-08-08] MEDS: DOCUSATE SODIUM 50 MG/SENNA 8.6 MG TAB PO SCH ×2 (09:39→21:08)
[2017-08-08] MEDS: cloNIDine HCL 0.2 MG TAB PO SCH ×2 (09:39→21:08)
[2017-08-08] MEDS: MULTIVITAMINS/MINERALS THERAPEUTIC TAB PO SCH (09:39)
[2017-08-08] MEDS: CALCIUM/VITAMIN D 250 MG/125 U TAB PO SCH ×2 (09:39→21:08)
[2017-08-08] MEDS: valACYclovir HCL 500 MG TAB PO SCH ×3 (09:40→21:08)
[2017-08-08 12:00] VITALS: BP 164/67; PULSE 60; RESP 18; TEMP 98.2; O2SAT 95
--- NOTE | 2017-08-08 14:50 | HHI.PR ---
Subjective Remarks No new complaints. Objective Vitals Vital Signs Date Time Temp Pulse Resp B/P (MAP) Pulse Ox O2 Delivery O2 Flow Rate FiO2 08/08/17 12:00 98.2 60 18 164/67 (99) 95 08/08/17 08:00 99.0 75 18 133/74 (93) 96 08/08/17 04:00 Room Air 08/08/17 04:00 98.1 57 18 152/71 (98) 94 08/08/17 00:00 98.2 56 20 173/73 (106) 95 08/08/17 00:00 Room Air 08/07/17 20:00 Room Air 08/07/17 20:00 97.3 58 20 148/75 (99) 96 08/07/17 16:00 Room Air 08/07/17 16:00 97.4 54 18 164/76 (105) 98 Result Diagram: 08/05/17 1830 08/08/17 0749 Imaging Last 24 hours Impressions Foot X-Ray 08/05/17 0000 Signed Impressions: Service Date/Time: Saturday, August 05, 2017 19:53 - CONCLUSION: 1. Soft tissue swelling and ulceration at the second toe with questionable ulceration of the proximal phalanx. Differential diagnosis includes early osteomyelitis. No subluxation at the proximal interphalangeal joint of the second toe as well. Also hallux valgus deformity and chronic degenerative changes left foot. Bryce Hinojosa MD Objective Remarks GENERAL: This is a well-nourished, well-developed patient, in no apparent distress. CARDIOVASCULAR: Regular rate and rhythm without murmurs, gallops, or rubs. RESPIRATORY: Clear to auscultation. Breath sounds equal bilaterally. No wheezes , rales, or rhonchi. GASTROINTESTINAL: Abdomen soft, non-tender, nondistended. Normal active bowel sounds MUSCULOSKELETAL: left distal foot is bandaged NEURO: Alert & Oriented x4 to person, place, time, situation. Moves all ext x4 A/P Problem List: (1) Osteomyelitis of toe of left foot ICD Codes: M86.9 - Osteomyelitis, unspecified Status: Acute Plan: 1. left 2nd toe osteomyelitis/ulceration. - s/p 6 weeks iv invanz and then po abx - per Podiatry pt can be discharged on course of PO abx - received fax from pt's HIV doctor/PCP requesting 21 days of Imipenem with Fortaz - digit with osteomyelitis has been amputated, awaiting pathology to demonstrate clear margins - Pt currently receiving zosyn/Vancomycin (08/06 - 08/08/17) - blood culture (08/06) --> NO growth to date - request ID consultation for discharge antibiotic recommendations (2) Toe infection ICD Codes: L08.9 - Local infection of the skin and subcutaneous tissue, unspecified Status: Acute Plan: as above (3) HIV (human immunodeficiency virus infection) ICD Codes: B20 - Human immunodeficiency virus [HIV] disease Status: Chronic Plan: - outpt regimen has been resumed (4) Diabetes ICD Codes: E11.9 - Type 2 diabetes mellitus without complications Status: Chronic Plan: - metformin and Invokana recently stopped, outpt - pt was placed on levemir and ssi - pt reports 15u 70/30 am and 15u lantus at night for home regimen. - Pt currently receiving levemir 10 units BID - SSI (5) HTN (hypertension) ICD Codes: I10 - Essential (primary) hypertension Status: Chronic Asim Shaffer DO Aug 08, 2017 14:50
[2017-08-08 16:00] VITALS: BP 159/76; PULSE 61; RESP 18; TEMP 98.4; O2SAT 98
[2017-08-08] MEDS: RILPIVIRINE 25 MG TAB PO SCH (17:30)
[2017-08-08 20:00] VITALS: BP 151/72; PULSE 56; RESP 20; TEMP 98.4; O2SAT 96
[2017-08-09] VITALS (8 sets, daily range): BP systolic 128–173; BP diastolic 59–80; PULSE 51–63; RESP 18–22; TEMP 97.2–98.4; O2SAT 94–98
[2017-08-09] MEDS: VANCOMYCIN 1,500 MG/NS 500 ML IV SCH ×4 (02:28→21:58)
[2017-08-09] MEDS: PIPERACIL-TAZO 3.375 GM PREMIX 50 ML IV SCH ×3 (05:32→23:02)
[2017-08-09] MEDS: INSULIN NovoLIN REGULAR SUPPLEMENTAL SCALE SQ SCH ×4 (08:00→21:56)
[2017-08-09 08:21] LABS: AUTOMATED NEUTROPHIL # 2.4 TH/MM3 (1.8-7.7); BASOPHIL % 0.4 % (0.0-2.0); EOSINOPHIL # 0.2 TH/MM3 (0-0.4); EOSINOPHIL % 2.7 % (0.0-4.0); HEMATOCRIT 33.5 % (39.0-51.0); HEMO FLAGS DIFF FINAL; LYMPH % 42.1 % (9.0-44.0); LYMPHOCYTE # 2.7 TH/MM3 (1.0-4.8); MEAN CELL VOLUME 110.2 FL (80.0-100.0); MEAN CORPUSCULAR HEMOGLOBIN 36.8 PG (27.0-34.0); MEAN CORPUSCULAR HGB CONC 33.4 % (32.0-36.0); MONO % 16.2 % (0.0-8.0); NEUT % 38.6 % (16.0-70.0); PLATELET COUNT 248 TH/MM3 (150-450); RED BLOOD COUNT 3.04 MIL/MM3 (4.50-5.90); RED CELL DISTRIBUTION WIDTH 14.3 % (11.6-17.2); WHITE BLOOD COUNT 6.3 TH/MM3 (4.0-11.0)
[2017-08-09 08:45] LABS: MAGNESIUM 1.8 MG/DL (1.5-2.5); POTASSIUM 3.5 MEQ/L (3.5-5.1)
[2017-08-09] MEDS: INSULIN DETEMIR 100 UNITS/ML VIAL SQ SCH ×2 (09:00→21:48)
[2017-08-09] MEDS: DOLUTEGRAVIR SODIUM 50 MG TAB PO SCH (09:27)
[2017-08-09] MEDS: HYDROCHLOROTHIAZIDE 12.5 MG CAP PO SCH ×2 (09:27→21:47)
[2017-08-09] MEDS: DOCUSATE SODIUM 50 MG/SENNA 8.6 MG TAB PO SCH ×2 (09:28→21:47)
[2017-08-09] MEDS: MULTIVITAMINS/MINERALS THERAPEUTIC TAB PO SCH (09:28)
[2017-08-09] MEDS: LISINOPRIL 20 MG TAB PO SCH ×2 (09:28→21:48)
[2017-08-09] MEDS: CALCIUM/VITAMIN D 250 MG/125 U TAB PO SCH ×2 (09:28→21:47)
[2017-08-09] MEDS: valACYclovir HCL 500 MG TAB PO SCH ×3 (09:28→21:48)
[2017-08-09] MEDS: cloNIDine HCL 0.2 MG TAB PO SCH ×2 (09:29→21:47)
[2017-08-09] MEDS: SODIUM CHLORIDE 0.9% FLUSH 10 ML FLUSH IV FLUSH SCH ×2 (09:29→21:57)
[2017-08-09] MEDS: MORPHINE SULFATE 4 MG/ML INJ IV PUSH PRN ×2 (09:34→18:15)
--- NOTE | 2017-08-09 16:03 | PD.ID.CON ---
History of Present Illness Service ID Consult Requested By Dr Shaffer Reason for Consult DFI, toe osteo L 2nd Primary Care Physician Rambo Bustos MD Diagnoses: History of Present Illness 66 yo diabetic male with long history of dorsal wound L 2nd toe. Patient of Dr Last. On Invanz x 6 weeks in April - pt states no improvement No information on office culture cultures in the chart Recent MRI positive for OM - per notes sp the toe amputation yday Blood clx negative clx ot the bone not available, path P Pt also has HIV dz, pt of Dr Townsend; per pt he is compliant, VL undeectable, does not know his CD4 count DM , on insulin self reported most recent Hb A1 C 6.5 denies fever WBC within normal limits Review of Systems Except as stated in HPI: all other systems reviewed are Neg Past Family Social History Allergies: Coded Allergies: No Known Allergies (Verified , 08/05/17) Past Medical History HIV dz DM Past Surgical History RLE ORIF Active Ordered Medications Medications where reviewed in EMR Antibiotics Include: tivicay rilpivirine epivir valtrex zosyn vanco Family History reviewed notg contriutory t current illness Social History No Tobacco. No ETOH. No Illicit Drugs. Physical Exam Vital Signs Vital Signs Date Time Temp Pulse Resp B/P (MAP) Pulse Ox O2 Delivery O2 Flow Rate FiO2 08/09/17 12:00 97.7 52 20 162/77 (105) 95 08/09/17 08:00 98.4 63 20 154/77 (102) 95 08/09/17 04:00 Room Air 08/09/17 04:00 98.4 61 18 152/75 (100) 95 08/09/17 00:00 97.5 60 20 128/59 (82) 94 08/09/17 00:00 Room Air 08/08/17 20:00 Room Air 08/08/17 20:00 98.4 56 20 151/72 (98) 96 Physical Exam CONSTITUTIONAL/GENERAL: This is an adequately nourished patient, in no apparent distress. TUBES/LINES/DRAINS: SKIN: No jaundice, rashes, or lesions. Skin temperature appropriate. Not diaphoretic. HEAD: Atraumatic. Normocephalic. EYES: Pupils equal and round and reactive. Extraocular motions intact. No scleral icterus. No injection or drainage. Fundi not examined. ENT: Hearing grossly normal. Nose without bleeding or purulent drainage. Oral mucosae moist without visible erythema, exudates, masses, or lesions. NECK: Trachea midline. Supple, nontender. CARDIOVASCULAR: Regular rate and rhythm without murmurs, gallops, or rubs. No JVD. Peripheral pulses symmetric. RESPIRATORY/CHEST: Symmetric, unlabored respirations. Clear to auscultation. Breath sounds equal bilaterally. No wheezes, rales, or rhonchi. GASTROINTESTINAL: Abdomen soft, non-tender, nondistended. No hepato-splenomegaly , or palpable masses. No guarding. Bowel sounds present. GENITOURINARY: Without palpable bladder distension. MUSCULOSKELETAL: Extremities without clubbing, cyanosis, or edema. No joint tenderness or effusion noted. No calf tenderness. No mottling or clubbing. S/p amputation of L 2nd toe; surg dressing in place with minimal blood staining + minimal edema of ankle noted + inlarged nontender ipsilateral groin lymph nodule + light touch sensation present LYMPHATICS: No palpable cervical or supraclavicular adenopathy. NEUROLOGICAL: Awake and alert. Motor and sensory grossly within normal limits. Follows commands. Clear speech. Moves all extremities. PSYCHIATRIC: No obvious anxiety/depression. no apparent hallucinations or other psychotic thought process. Laboratory Laboratory Tests Test 08/09/17 07:10 White Blood Count 6.3 Red Blood Count 3.04 Hemoglobin 11.2 Hematocrit 33.5 Mean Corpuscular Volume 110.2 Mean Corpuscular Hemoglobin 36.8 Mean Corpuscular Hemoglobin Concent 33.4 Red Cell Distribution Width 14.3 Platelet Count 248 Mean Platelet Volume 8.5 Neutrophils (%) (Auto) 38.6 Lymphocytes (%) (Auto) 42.1 Monocytes (%) (Auto) 16.2 Eosinophils (%) (Auto) 2.7 Basophils (%) (Auto) 0.4 Neutrophils # (Auto) 2.4 Lymphocytes # (Auto) 2.7 Monocytes # (Auto) 1.0 Eosinophils # (Auto) 0.2 Basophils # (Auto) 0.0 CBC Comment DIFF FINAL Differential Comment Blood Urea Nitrogen 7 Creatinine 1.33 Random Glucose 74 Calcium Level 9.0 Magnesium Level 1.8 Sodium Level 141 Potassium Level 3.5 Chloride Level 108 Carbon Dioxide Level 27.0 Anion Gap 6 Estimat Glomerular Filtration Rate 65 Date/Time Source Procedure Growth Status 08/05/17 18:45 Blood Peripheral Aerobic Blood Culture - Preliminary NO GROWTH IN 4 DAYS Resulted 08/05/17 18:45 Blood Peripheral Anaerobic Blood Culture - Preliminary NO GROWTH IN 4 DAYS Resulted Result Diagram: 08/09/17 0710 08/09/17 0710 Imaging Last Impressions Foot X-Ray 08/07/17 0000 Signed Impressions: Service Date/Time: Monday, August 07, 2017 14:24 - CONCLUSION: 1. Post surgical changes. 2. Arthritic changes in the metatarsophalangeal joint of the first digit. 3. No acute abnormality. Piero Barrera MD Assessment and Plan Assessment and Plan 2nd L toe DFI, osteomyelitis,sp amputation DM, well controlled HIV dz, on HAART cont current abx - fu path -? old cultures Discussed Condition With Va Ellis MD Aug 09, 2017 16:03
--- NOTE | 2017-08-09 16:35 | HHI.PR ---
Subjective Remarks No new complaints. Objective Vitals Vital Signs Date Time Temp Pulse Resp B/P (MAP) Pulse Ox O2 Delivery O2 Flow Rate FiO2 08/09/17 12:00 97.7 52 20 162/77 (105) 95 08/09/17 08:00 98.4 63 20 154/77 (102) 95 08/09/17 04:00 Room Air 08/09/17 04:00 98.4 61 18 152/75 (100) 95 08/09/17 00:00 97.5 60 20 128/59 (82) 94 08/09/17 00:00 Room Air 08/08/17 20:00 Room Air 08/08/17 20:00 98.4 56 20 151/72 (98) 96 Result Diagram: 08/09/17 0710 08/09/17 0710 Imaging Last 24 hours Impressions Foot X-Ray 08/05/17 0000 Signed Impressions: Service Date/Time: Saturday, August 05, 2017 19:53 - CONCLUSION: 1. Soft tissue swelling and ulceration at the second toe with questionable ulceration of the proximal phalanx. Differential diagnosis includes early osteomyelitis. No subluxation at the proximal interphalangeal joint of the second toe as well. Also hallux valgus deformity and chronic degenerative changes left foot. Bryce Hinojosa MD Objective Remarks GENERAL: This is a well-nourished, well-developed patient, in no apparent distress. CARDIOVASCULAR: Regular rate and rhythm without murmurs, gallops, or rubs. RESPIRATORY: Clear to auscultation. Breath sounds equal bilaterally. No wheezes , rales, or rhonchi. GASTROINTESTINAL: Abdomen soft, non-tender, nondistended. Normal active bowel sounds MUSCULOSKELETAL: left distal foot is bandaged NEURO: Alert & Oriented x4 to person, place, time, situation. Moves all ext x4 A/P Problem List: (1) Osteomyelitis of toe of left foot ICD Codes: M86.9 - Osteomyelitis, unspecified Status: Acute Plan: left 2nd toe osteomyelitis/ulceration. - s/p 6 weeks iv invanz and then po abx - per Podiatry pt can be discharged on course of PO abx - received fax from pt's HIV doctor/PCP requesting 21 days of Imipenem with Fortaz - digit with osteomyelitis has been amputated, awaiting pathology to demonstrate clear margins - Pt currently receiving zosyn/Vancomycin (08/06 - 08/08/17) - blood culture (08/06) --> NO growth to date - case d/w ID, Dr. Moreno (08/09). Will give final antibiotic recommendations - anticipate discharge to home 08/10 (2) Toe infection ICD Codes: L08.9 - Local infection of the skin and subcutaneous tissue, unspecified Status: Acute Plan: as above (3) HIV (human immunodeficiency virus infection) ICD Codes: B20 - Human immunodeficiency virus [HIV] disease Status: Chronic Plan: - outpt regimen has been resumed (4) Diabetes ICD Codes: E11.9 - Type 2 diabetes mellitus without complications Status: Chronic Plan: - metformin and Invokana recently stopped, outpt - pt was placed on levemir and ssi - pt reports 15u 70/30 am and 15u lantus at night for home regimen. - Pt currently receiving levemir 10 units BID - SSI (5) HTN (hypertension) ICD Codes: I10 - Essential (primary) hypertension Status: Chronic Asim Shaffer DO Aug 09, 2017 16:35
[2017-08-09] MEDS: RILPIVIRINE 25 MG TAB PO SCH (18:13)
[2017-08-09] MEDS ORDERED: PHARMACY ORDERED LAB ONE (19:45)
[2017-08-10] VITALS: BP 122/59; PULSE 54; RESP 20; TEMP 98.4; O2SAT 96
[2017-08-10 04:00] VITALS: BP 164/73; PULSE 52; RESP 20; TEMP 98.7; O2SAT 95
[2017-08-10] MEDS: PIPERACIL-TAZO 3.375 GM PREMIX 50 ML IV SCH (05:26)
[2017-08-10] MEDS ORDERED: LEVEMIR SQ ×2 (07:56→09:51)
[2017-08-10 08:00] VITALS: BP 147/76; PULSE 61; RESP 18; TEMP 97.6; O2SAT 97
[2017-08-10] MEDS: INSULIN NovoLIN REGULAR SUPPLEMENTAL SCALE SQ SCH ×2 (08:00→13:05)
--- NOTE | 2017-08-10 08:01 | HHI.DCPOC ---
Discharge Care Plan Diagnosis: (1) Osteomyelitis of toe of left foot (2) Diabetes (3) HIV (human immunodeficiency virus infection) Goals to Promote Your Health * To prevent worsening of your condition and complications * To maintain your health at the optimal level Directions to Meet Your Goals Take your medications as prescribed Follow your dietary instruction Follow activity as directed Keep your appointments as scheduled Take your immunizations and boosters as scheduled If your symptoms worsen call your PCP, if no PCP go to Urgent Care Center or Emergency Room Smoking is Dangerous to Your Health. Avoid second hand smoke Call the 24-hour hour crisis hotline for domestic abuse at [facility] Aug 10, 2017 08:01 Asim Shaffer DO Aug 13, 2017 21:56
--- NOTE | 2017-08-10 08:04 | HHI.DS ---
Discharge Summary Admission Date Aug 05, 2017 at 19:45 Discharge Date: Aug 10, 2017 Admitting Diagnosis left second toe osteomyelitis (1) Osteomyelitis of toe of left foot ICD Codes: M86.9 - Osteomyelitis, unspecified Status: Acute (2) Toe infection ICD Codes: L08.9 - Local infection of the skin and subcutaneous tissue, unspecified Status: Acute (3) HIV (human immunodeficiency virus infection) ICD Codes: B20 - Human immunodeficiency virus [HIV] disease Status: Chronic (4) Diabetes ICD Codes: E11.9 - Type 2 diabetes mellitus without complications Status: Chronic (5) HTN (hypertension) ICD Codes: I10 - Essential (primary) hypertension Status: Chronic Consultants Dr. Miah Moreno Procedures amputation left 2nd toe 08/07/17 Brief History 66 y/o male with history of osteomyelitis left second toe treated as outpatiwent with 21 days of IV antibiotics and had follow up with ID and podiatry. Patient has had increasing pain to toe and was told by podiatry the soonist outpatient procedure would be in august and was instructed to come to er and can possibly be done this weekend and patient came to er ,toe has circular dry ulcer left second toe with skin discoloration pain on movement. Patient with PMH of HIV on prophylaxis medications,also diabetes on insulin . Patient will be admitted with podiatry evaluation. Did receive vancomycin and zosyn in er. CBC/BMP: 08/09/17 0710 08/09/17 0710 Significant Findings Laboratory Tests Test 08/07/17 08:39 08/08/17 07:49 08/09/17 07:10 08/09/17 20:10 Creatinine 1.42 MG/DL (0.60-1.30) 1.40 MG/DL (0.60-1.30) 1.33 MG/DL (0.60-1.30) Random Glucose 114 MG/DL (74-106) 48 MG/DL (74-106) Estimat Glomerular Filtration Rate 60 ML/MIN (>89) 61 ML/MIN (>89) 65 ML/MIN (>89) Red Blood Count 3.04 MIL/MM3 (4.50-5.90) Hemoglobin 11.2 GM/DL (13.0-17.0) Hematocrit 33.5 % (39.0-51.0) Mean Corpuscular Volume 110.2 FL (80.0-100.0) Mean Corpuscular Hemoglobin 36.8 PG (27.0-34.0) Monocytes (%) (Auto) 16.2 % (0.0-8.0) Monocytes # (Auto) 1.0 TH/MM3 (0-0.9) Chloride Level 108 MEQ/L (98-107) Vancomycin Level Trough 16.0 MCG/ML (5.0-10.0) Imaging Last Impressions Foot X-Ray 08/07/17 0000 Signed Impressions: Service Date/Time: Monday, August 07, 2017 14:24 - CONCLUSION: 1. Post surgical changes. 2. Arthritic changes in the metatarsophalangeal joint of the first digit. 3. No acute abnormality. Piero Barrera MD PE at Discharge GENERAL: This is a well-nourished, well-developed patient, in no apparent distress. CARDIOVASCULAR: Regular rate and rhythm without murmurs, gallops, or rubs. RESPIRATORY: Clear to auscultation. Breath sounds equal bilaterally. No wheezes , rales, or rhonchi. GASTROINTESTINAL: Abdomen soft, non-tender, nondistended. Normal active bowel sounds MUSCULOSKELETAL: left distal foot is bandaged NEURO: Alert & Oriented x4 to person, place, time, situation. Moves all ext x4 Hospital Course Osteomyelitis of toe of left foot left 2nd toe osteomyelitis/ulceration. - S/P Amputation left 2nd toe 08/07/17 with - s/p 6 weeks iv invanz and then po abx - per Podiatry pt can be discharged on course of PO abx - received fax from pt's HIV doctor/PCP requesting 21 days of Imipenem with Fortaz - digit with osteomyelitis has been amputated, awaiting pathology to demonstrate clear margins - Pt currently receiving zosyn/Vancomycin (08/06 - 08/08/17) - blood culture (08/06) --> NO growth to date - case d/w ID, Dr. Moreno 08/10 no further abx recommendations feels as though she does not have enough information to give further abx recommendations - case discussed with podiatry no further abx recommended - will DC patient on no further abx as he has had Amputation left 2nd toe 08/07/17 with Toe infection as above HIV (human immunodeficiency virus infection) - outpt regimen has been resumed Diabetes - metformin and Invokana recently stopped, outpt - pt was placed on levemir and ssi - pt reports 15u 70/30 am and 15u lantus at night for home regimen. - Pt currently receiving Levemir 10 units BID, returned patient to prior home insulin regiment, discussed with patient to monitor blood sugar closely and also f/u with PCP regarding regiments - SSI HTN (hypertension) Chronic Pt Condition on Discharge: Stable Discharge Disposition: Discharge Home Discharge Instructions DIET: Follow Instructions for: Diabetic Diet Activities you can perform: See Additionl Instruction Other Activity Instructions: activity per Dr. Dooley Podiatry Follow up Referrals: Infectious Disease - [address] Townsend PCP Follow-up - [address] Bustos Podiatry - 1 Week with Delmy Dooley DPM Continued Medications: Calcium Carbonate-Cholecalciferol (Calcium + D3) 600-200 Mg-Unit Tab 1 TAB PO BID, TAB Clonidine (Clonidine) 0.2 Mg Tab 0.2 MG PO BID for Blood Pressure Management, #60 TAB 0 Refills Clopidogrel (Clopidogrel) 75 Mg Tab 75 MG PO DAILY for Blood Clot Prevention, #30 TAB 0 Refills Dolutegravir (Tivicay) 50 Mg Tab 50 MG PO DAILY for Mgmt Viral Infection, #30 TAB 0 Refills Ferrous Fumarate W/ B12-Vit C- (Ferocon) 110 Mg Iron-75 Mg-15 Mcg-0.5 Mg Cap PO BID Hydrochlorothiazide (Hydrochlorothiazide) 12.5 Mg Tab 12.5 MG PO BID, #60 TAB 0 Refills Insulin Glargine Inj (Lantus Inj) 1,000 Unit/10 Ml Vial 15 UNITS SQ HS for Blood Sugar Management, VIAL 0 Refills Lamivudine (Lamivudine) 300 Mg Tab 300 MG PO DAILY for Mgmt Viral Infection, #30 TAB 0 Refills Lisinopril (Lisinopril) 40 Mg Tab 40 MG PO BID for Blood Pressure Management, #30 TAB 0 Refills Metformin (Metformin) 1,000 Mg Tab 1000 MG PO BIDPC for Blood Sugar Management, #60 TAB 0 Refills Multiple Vitamins W/ Minerals (Thera M Plus) 1 Tab 1 TAB PO DAILY for Nutritional Supplement, TAB 0 Refills Rilpivirine (Edurant) 25 Mg Tab 25 MG PO DAILY for Mgmt Viral Infection, #30 TAB 0 Refills Valacyclovir (Valacyclovir) 1,000 Mg Tab 1000 MG PO BID for Mgmt Viral Infection, #60 TAB 0 Refills Valacyclovir (Valacyclovir) 1,000 Mg Tab 1000 MG PO DAILY for Mgmt Viral Infection, #30 TAB 0 Refills Additional Information keep dressing clean and dry- return to Dr. Dooley for follow up and first dressing change Patient examined. Assessment and plan formulated with Danyell Parrish PA-C. I agree with the above. Danyell Parrish Aug 10, 2017 08:04 Asim Shaffer DO Aug 10, 2017 11:03
[2017-08-10] MEDS ORDERED: INSULIN DETEMIR 100 UNITS/ML VIAL SQ SCH (09:00)
[2017-08-10] MEDS: cloNIDine HCL 0.2 MG TAB PO SCH (09:02)
[2017-08-10] MEDS: MULTIVITAMINS/MINERALS THERAPEUTIC TAB PO SCH (09:02)
[2017-08-10] MEDS: valACYclovir HCL 500 MG TAB PO SCH ×2 (09:02→13:08)
[2017-08-10] MEDS: LISINOPRIL 20 MG TAB PO SCH (09:02)
[2017-08-10] MEDS: HYDROCHLOROTHIAZIDE 12.5 MG CAP PO SCH (09:02)
[2017-08-10] MEDS: DOLUTEGRAVIR SODIUM 50 MG TAB PO SCH (09:02)
[2017-08-10] MEDS: CALCIUM/VITAMIN D 250 MG/125 U TAB PO SCH (09:02)
[2017-08-10] MEDS: MORPHINE SULFATE 4 MG/ML INJ IV PUSH PRN (09:03)
[2017-08-10] MEDS: DOCUSATE SODIUM 50 MG/SENNA 8.6 MG TAB PO SCH (09:03)
--- NOTE | 2017-08-10 09:03 | HHI.PR ---
Subjective Remarks Patient awake and alert in no acute distress reports minimal pain Left foot request diet be changed to regular diet as patient is having a hard time eating consistently with the diabetic diet Objective Vitals Vital Signs Date Time Temp Pulse Resp B/P (MAP) Pulse Ox O2 Delivery O2 Flow Rate FiO2 08/10/17 04:00 98.7 52 20 164/73 (103) 95 08/10/17 00:00 98.4 54 20 122/59 (80) 96 08/09/17 22:00 Room Air 08/09/17 20:46 98.2 51 18 168/71 (103) 95 08/09/17 19:00 20 08/09/17 16:50 152/70 (97) 08/09/17 16:45 97.4 55 20 173/80 (111) 98 08/09/17 16:00 97.2 55 22 136/71 (92) 98 08/09/17 12:00 97.7 52 20 162/77 (105) 95 Result Diagram: 08/09/17 0710 08/09/17 0710 Other Results Laboratory Tests Test 08/08/17 07:49 08/09/17 07:10 08/09/17 20:10 Blood Urea Nitrogen 7 MG/DL 7 MG/DL Creatinine 1.40 MG/DL 1.33 MG/DL Random Glucose 48 MG/DL 74 MG/DL Calcium Level 8.9 MG/DL 9.0 MG/DL Sodium Level 141 MEQ/L 141 MEQ/L Potassium Level 3.6 MEQ/L 3.5 MEQ/L Chloride Level 107 MEQ/L 108 MEQ/L Carbon Dioxide Level 26.1 MEQ/L 27.0 MEQ/L Anion Gap 8 MEQ/L 6 MEQ/L Estimat Glomerular Filtration Rate 61 ML/MIN 65 ML/MIN White Blood Count 6.3 TH/MM3 Red Blood Count 3.04 MIL/MM3 Hemoglobin 11.2 GM/DL Hematocrit 33.5 % Mean Corpuscular Volume 110.2 FL Mean Corpuscular Hemoglobin 36.8 PG Mean Corpuscular Hemoglobin Concent 33.4 % Red Cell Distribution Width 14.3 % Platelet Count 248 TH/MM3 Mean Platelet Volume 8.5 FL Neutrophils (%) (Auto) 38.6 % Lymphocytes (%) (Auto) 42.1 % Monocytes (%) (Auto) 16.2 % Eosinophils (%) (Auto) 2.7 % Basophils (%) (Auto) 0.4 % Neutrophils # (Auto) 2.4 TH/MM3 Lymphocytes # (Auto) 2.7 TH/MM3 Monocytes # (Auto) 1.0 TH/MM3 Eosinophils # (Auto) 0.2 TH/MM3 Basophils # (Auto) 0.0 TH/MM3 CBC Comment DIFF FINAL Differential Comment Magnesium Level 1.8 MG/DL Vancomycin Level Trough 16.0 MCG/ML Imaging Last 24 hours Impressions Foot X-Ray 08/05/17 0000 Signed Impressions: Service Date/Time: Saturday, August 05, 2017 19:53 - CONCLUSION: 1. Soft tissue swelling and ulceration at the second toe with questionable ulceration of the proximal phalanx. Differential diagnosis includes early osteomyelitis. No subluxation at the proximal interphalangeal joint of the second toe as well. Also hallux valgus deformity and chronic degenerative changes left foot. Bryce Hinojosa MD Objective Remarks GENERAL: This is a well-nourished, well-developed patient, in no apparent distress. CARDIOVASCULAR: Regular rate and rhythm without murmurs, gallops, or rubs. RESPIRATORY: Clear to auscultation. Breath sounds equal bilaterally. No wheezes , rales, or rhonchi. GASTROINTESTINAL: Abdomen soft, non-tender, nondistended. Normal active bowel sounds MUSCULOSKELETAL: left distal foot is bandaged NEURO: Alert & Oriented x4 to person, place, time, situation. Moves all ext x4 Procedures amputation left 2nd toe 08/07/17 A/P Problem List: (1) Osteomyelitis of toe of left foot ICD Codes: M86.9 - Osteomyelitis, unspecified Status: Acute Plan: left 2nd toe osteomyelitis/ulceration. - s/p 6 weeks iv invanz and then po abx - per Podiatry pt can be discharged on course of PO abx - received fax from pt's HIV doctor/PCP requesting 21 days of Imipenem with Fortaz - digit with osteomyelitis has been amputated, awaiting pathology to demonstrate clear margins - Pt currently receiving zosyn/Vancomycin (08/06 - 08/08/17) - blood culture (08/06) --> NO growth to date - case d/w ID, Dr. Moreno (08/09). Will give final antibiotic recommendations - anticipate discharge to home 08/10 after ID gives final abx recommendations (2) Toe infection ICD Codes: L08.9 - Local infection of the skin and subcutaneous tissue, unspecified Status: Acute Plan: as above (3) HIV (human immunodeficiency virus infection) ICD Codes: B20 - Human immunodeficiency virus [HIV] disease Status: Chronic Plan: - outpt regimen has been resumed (4) Diabetes ICD Codes: E11.9 - Type 2 diabetes mellitus without complications Status: Chronic Plan: - metformin and Invokana recently stopped, outpt - pt was placed on levemir and ssi - pt reports 15u 70/30 am and 15u lantus at night for home regimen. - Pt currently receiving levemir 10 units BID blood sugar very labile 08/09 2100 301, 08/10 AM 51. - patient reports he is having a hard time eating consistently off the diabetic menu- request diet changed to regular diet. - Levemir decreased 10 units SQ once a day - SSI (5) HTN (hypertension) ICD Codes: I10 - Essential (primary) hypertension Status: Chronic Assessment and Plan Patient examined. Assessment and plan formulated with Danyell Parrish PA-C. I agree with the above. Danyell Parrish Aug 10, 2017 09:03 Asim Shaffer DO Aug 13, 2017 21:55
[2017-08-10] MEDS: SODIUM CHLORIDE 0.9% FLUSH 10 ML FLUSH IV FLUSH SCH (09:06)
[2017-08-10 12:00] VITALS: BP 172/57; PULSE 52; RESP 20; TEMP 97.6; O2SAT 97
[2017-08-10] MEDS: VANCOMYCIN 1,500 MG/NS 500 ML IV SCH ×2 (13:03)
--- NOTE | 2017-08-10 15:16 | HHI.PR ---
Addendum to Inpatient Note Additional Information case was d/w Nba Stevens and Edmund Operative cultures are not done Path pending O/p cultures - not availble case d/w glass cut off tender There is not enough data for me at this point to make o/p abx rec's If there is any indications to cont o/p abx per path report current or past (if available) clx need to be reviewed to Va Alberto Dr, MD Aug 10, 2017 15:16
[2017-08-11] MEDS ORDERED: PHARMACY ORDERED LAB ONE (07:45)
--- NOTE | 2017-08-13 16:14 | MP ---
cc: CUCA BLISS DPM DATE OF SURGERY August 07, 2017 DATE OF 1950 INDICATIONS The patient has been a long time patient of Dr. Wally Last, and has been treated for an ulceration to the left dorsal aspect of the second toe. He had an MRI confirming presence of osteomyelitis consistent with what was seen on the imaging and was sent to the hospital to be evaluated for treatment and possible amputation of the left second toe. I discussed with the patient the risks, benefits, potential complications of surgery. He agreed to undergo amputation left second toe. DESCRIPTION OF RECORD He was seen in preop holding by myself, nursing staff and Anesthesia where the correct patient, side and site were all confirmed be correct in the left second digit. He was taken back to the surgical suite, placed in supine position where attention was directed to the left foot. It is prepped and draped in normal sterile fashion followed by time-outs as per facility protocol and two semi elliptical incisions were made to disarticulate the second digit at the level metatarsophalangeal joint. A second digit was noted to have edema with a healed dorsal ulceration, very sausaged in appearance, atypical of the clinical appearance of osteomyelitis. After the toe was disarticulated and sent as specimen as left second toe to pathology the second metatarsal head was examined and noted to be healthy and white shiny in appearance with no purulence or necrotic tissue. No evidence of infection at this level. The area was copiously irrigated followed by primary closure with 2-0 and 3-0 nylon suture, followed by dressing consisting of Xeroform, 4x4, Augie and Andrea to the left foot. He tolerated the procedure and anesthesia well and due to surgical care and his other significant comorbidities I recommend that he be monitored closely in the clinic and not undergo antibiotics unless absolutely necessary. Culture was taken of the wound, surgical wound prior to closure to determine if any antibiotics would be required. He will be weightbearing as tolerated left foot in surgical shoe and will follow up in clinic in 1 week for a bandage change and to continue to monitor the surgical wound until sutures are removed and complete healing occurs. SHORT OPERATIVE NOTE SURGEON Cuca Bliss DPM DIRECTOR OF REAL ESTATE Staff. PREOPERATIVE DIAGNOSIS Osteomyelitis left second toe. POSTOPERATIVE DIAGNOSIS Osteomyelitis left second toe. PROCEDURE Amputation left second toe. PATHOLOGY 1. Culture left foot. 2. Left second toe to pathology. ESTIMATED BLOOD LOSS Minimal. ANESTHESIA General plus local consisting of 10 mL of 0.5% Marcaine plain. TOURNIQUET TIME Left ankle tourniquet at 250 mmHg for 44 minutes. COMPLICATIONS None. CONDITION Stable to PACU. DISPOSITION Weightbearing as tolerated left foot in surgical shoe and will continue to monitor surgical wound and sutures removed in approximately 2 weeks. Cuca CARDENAS /12:19 PM /3:58 PM
== END 2017-08-10 15:47 | disposition home or self-care (01) | DRG 616 ==
LOC: NEPC 17:44 → NEDA 19:45 → N04A 22:01 → N04B 08-06 08:01
PROVIDERS: ADMIT Hospitalist; ATTEND Hospitalist
PROC: 0Y6S0Z0 Detachment at Left 2nd Toe, Complete, Open Approach (ICD-10-PCS; principal; 2017-08-07 12:59)
DX: E11.69 Type 2 diabetes mellitus with other specified complication (principal); B20 Human immunodeficiency virus [HIV] disease; M86.9 Osteomyelitis, unspecified; E11.621 Type 2 diabetes mellitus with foot ulcer; I10 Essential (primary) hypertension; L97.529 Non-pressure chronic ulcer of other part of left foot with unspecified severity; M20.12 Hallux valgus (acquired), left foot; Z79.4 Long term (current) use of insulin
CPT/HCPCS: 73630; 80048; 80053; 80202; 82948; 83605; 83735; 85025; 85610; 85730; 87040; 88305; 88311; 93005; J2250; J2270; J2405; J2543; J3010; J3370; J7030; J7040; J7050; L3260